=== PATIENT | female | born 2005 | race Caucasian/White ===

== ENCOUNTER 2023-07-15 01:11 | Emergency (ER) | payer MEDICAID ==
[2023-07-15 01:43] VITALS: RESP 16; TEMP 97.8; O2SAT 98
--- NOTE | 2023-07-15 01:48 | ERPHSYRPT ---
- History of Present Illness Time Seen by Provider: 07/15/23 01:30 Source: patient Exam Limitations: no limitations Patient Subjective Stated Complaint: pt states that while working on her car engine at approx 0100 she suffered a laceration to left lower arm anterior, she held pressure to wound and came to ED. Triage Nursing Assessment: pt ambulated into room 4 independently with slow steady gait. pt is alert and oriented times three, able to move all extremities, able to speak in complete sentences, and with resp even and unlabored. 4.8cm X 1cm laceration noted to left anterior lower arm. skin warm, pink, dry, and intact with exception of laceration. pt denies numbness or tingling. cap refill to left hand within normal limits and pt able to wiggle all fingers. sensation intact within normal limits. pt rates pain 5/10 and is constant ache/ throb. Physician History: 18-year-old female presents to our ED for evaluation and treatment of a laceration to her left volar forearm. Patient reports she was working on a car at 1 AM. Patient states that something moved while working on her vehicle causing the laceration to occur. Laceration measures 4.8 x 1 cm. Pain rated 5 out of 10. No other injuries reported. No blunt trauma. Tetanus up-to-date. Patient is otherwise healthy. She voices no other complaints or concerns at this time. Portions of this note were created with voice recognition technology. There may be grammatical, spelling, punctuation or sound alike errors Timing/Duration: today Severity: mild Modifying Factors: Improves With: nothing Associated Symptoms: denies symptoms Allergies/Adverse Reactions: amoxicillin [From Augmentin] Allergy (Unknown, Verified 07/15/23 01:21) clavulanic acid [From Augmentin] Allergy (Unknown, Verified 07/15/23 01:21) Hx Tetanus, Diphtheria Vaccination/Date Given: Yes (<5yrs ago) Hx Influenza Vaccination/Date Given: No Hx Pneumococcal Vaccination/Date Given: No Immunizations Up to Date: Yes Travel Risk - International Travel Have you traveled outside of the country in past 3 weeks: No - Coronavirus Screening Are you exhibiting any of the following symptoms?: No Close contact with a COVID-19 positive Pt in past 14-21 Days: No - Vaccine Status Have you recieved a Covid-19 vaccination: No - Review of Systems Constitutional: No Symptoms, No Fever, No Chills Eyes: No Symptoms Ears, Nose, & Throat: No Symptoms Respiratory: No Symptoms, No Cough, No Dyspnea Cardiac: No Symptoms, No Chest Pain, No Edema, No Syncope Abdominal/Gastrointestinal: No Symptoms, No Abdominal Pain, No Nausea, No Vomiting, No Diarrhea Genitourinary Symptoms: No Symptoms, No Dysuria Musculoskeletal: No Symptoms, No Back Pain, No Neck Pain Skin: No Symptoms, No Rash Neurological: No Symptoms, No Dizziness, No Focal Weakness, No Sensory Changes Psychological: No Symptoms Endocrine: No Symptoms Hematologic/Lymphatic: No Symptoms Immunological/Allergic: No Symptoms All Other Systems: Reviewed and Negative - Past Medical History Pertinent Past Medical History: Yes Neurological History: No Pertinent History ENT History: No Pertinent History Cardiac History: No Pertinent History Respiratory History: No Pertinent History Endocrine Medical History: No Pertinent History Musculoskeletal History: No Pertinent History GI Medical History: No Pertinent History History: No Pertinent History Psycho-Social History: No Pertinent History Female Reproductive Disorders: No Pertinent History - Past Surgical History Past Surgical History: No Neuro Surgical History: No Pertinent History Cardiac: No Pertinent History Respiratory: No Pertinent History Gastrointestinal: No Pertinent History Genitourinary: No Pertinent History Musculoskeletal: No Pertinent History Female Surgical History: No Pertinent History - Social History Smoking Status: Never smoker Exposure to second hand smoke: No Drug Use: marijuana Patient Lives Alone: No - Female History Hx Last Menstrual Period: 07/03/23 Hx Now: No - Nursing Vital Signs Nursing Vital Signs: Initial Vital Signs Pulse Rate 77 07/15/23 01:19 Respiratory Rate 18 07/15/23 01:19 Blood Pressure 173/109 07/15/23 01:19 O2 Sat by Pulse Oximetry 97 07/15/23 01:19 Pain Scale Pain Intensity 0 - Physical Exam General Appearance: no apparent distress, alert Eye Exam: PERRL/EOMI, eyes nml inspection Ears, Nose, Throat Exam: normal ENT inspection, pharynx normal, moist mucous membranes Neck Exam: normal inspection, non-tender, supple, full range of motion Respiratory Exam: normal breath sounds, lungs clear, airway intact, No respiratory distress Cardiovascular Exam: regular rate/rhythm, normal heart sounds, normal peripheral pulses Gastrointestinal/Abdomen Exam: soft, normal bowel sounds, No tenderness, No mass Back Exam: normal inspection, normal range of motion, No CVA tenderness, No vertebral tenderness Extremity Exam: normal inspection, normal range of motion, pelvis stable Neurologic Exam: alert, oriented x 3, cooperative, normal mood/affect, nml cerebellar function, nml station & gait, sensation nml, No motor deficits Skin Exam: normal color, warm, dry, No rash Lymphatic Exam: No adenopathy SpO2 Interpretation: normal SpO2: 98 O2 Delivery: Room Air Procedures - Laceration/Wound Repair Left Arm Time of Procedure: 02:42 Wound Location: Left (Left volar forearm) Wound Length (cm): 4.8 Wound's Depth, Shape: superficial Wound Explored: clean Irrigated: Yes Hibiclens Prep: Yes Anesthesia: 1% Lidocaine Volume Anesthetic (ccs): 4 Wound Debrided: No debridement indicated Wound Repaired With: sutures Suture Size/Type: 5-0, ethilon Number of Sutures: 11 Layer Closure?: No Sterile Dressing Applied?: Yes Splint Applied?: No Sling Applied?: No Progress: Patient neurovascular intact distally pre and post procedure. No intraprocedure or postprocedural complications. Patient tolerated procedure well. 07/15/23 02:43 - Course Nursing assessment & vital signs reviewed: Yes - Radiology Exams Forearm X-ray Interpretation: Interpreted by me (No fracture dislocation. No foreign bodies observed.) Ordered Tests: Active Orders 24 hr Category Date Time Status FOREARM Stat Exams 07/15/23 01:34 Taken - Progress Progress: improved Progress Note: 18-year-old female presents to our ED for evaluation and treatment of a laceration to the volar aspect of the left forearm. Laceration was anesthetized. 11 simple interrupted sutures were placed using 5-0 Ethilon. Care was taken to align the borders of the patient's superimposed tattoo. Patient tolerated procedure well. No intra or postprocedural complications. Patient neurovascular tact distally post procedure. X-ray negative for foreign body no fracture or dislocation. A prescription for antibiotics forwarded to patient's pharmacy. Patient agrees to follow-up with her primary care doctor within 48 hours for reevaluation. Sutures will be removed in 7 to 10 days. Patient voices no other complaints or concerns at this time. Portions of this note were created with voice recognition technology. There may be grammatical, spelling, punctuation or sound alike errors Complexity of problems addressed is low acute uncomplicated No critical care time Complex of data reviewed and analyzed is moderate. X-ray of the involved extremity was completed. Dr. Soto independently reviewed the x-ray. Results were analyzed and correlated clinically. Risk complication and or risk of morbidity/mortality of patient management is moderate. A prescription for clindamycin forwarded to patient's pharmacy. Vital stable. Time spent to discharge patient is approximately 15 minutes. Plan of care established for shared decision making. No social determinants of health present impede follow-up. Portions of this note were created with voice recognition technology. There may be grammatical, spelling, punctuation or sound alike errors 07/15/23 02:52 Counseled pt/family regarding: diagnosis, need for follow-up, rad results - Departure Departure Disposition: Home Clinical Impression: Laceration Condition: Stable Critical Care Time: No Instructions: Laceration Repair With Stitches (DC) Additional Instructions: Discharge/Care Plan JULIET GARCÍA was seen on 07/15/23 in the Emergency Room. The patient was counseled regarding Diagnosis,Lab results, Imaging studies, need for follow up and when to return to the Emergency Room. Prescriptions given: Discharge Note I have spoken with the patient and/or caregivers. I have explained the patient's condition, diagnosis and treatment plan based on the information available to me at this time. I have answered the patient's and/or caregiver's questions and addressed any concerns. The patient and/or caregivers have as good understanding of the patient's diagnosis, condition and treatment plan as can be expected at this point. The vital signs have been stable. The patient's condition is stable and appropriate for discharge from the emergency department. The patient will pursue further outpatient evaluation with the primary care physician or other designated or consulting physician as outlined in the discharge instructions. The patient and/or caregivers are agreeable to this plan of care and follow-up instructions have been explained in detail. The patient and/or caregivers have received these instruction. The patient/and or caregivers are aware that any significant change in condition or worsening of symptoms should prompt an immediate return to this or the closest emergency department or call 911. Prescriptions: Clindamycin HCl 150 mg [Cleocin 150 mg Capsule] 2 cap PO TID 5 Days #30 cap
[2023-07-15 02:26] VITALS: BP 104/47; PULSE 76
--- NOTE | 2023-07-15 08:50 | XRAY ---
Indication: Foreign body. Comparison: None 2 view left forearm demonstrates mid anterior soft tissue swelling/laceration without underlying radiopaque foreign body. No other bony, articular, or soft tissue abnormalities.
== END 2023-07-15 02:53 | disposition home or self-care (01) ==
LOC: ED 01:11
DX: S51.812A Laceration without foreign body of left forearm, initial encounter (principal); W26.8XXA Contact with other sharp object(s), not elsewhere classified, initial encounter; Z28.310 Unvaccinated for COVID-19
CPT/HCPCS: 12002; 73090; 99283